=== PATIENT | male | born 1950 | race Caucasian/White ===

== ENCOUNTER 2016-09-15 01:05 | Emergency (ER) | payer MEDICARE ==
[~2016-09-15] VITALS: Ht 170.2 cm; Wt 65.9 kg
[~2016-09-15 01:05] MED LIST: ATEN50TA PO; DULO30CA50 PO; SILD100T PO
[2016-09-15 01:08] VITALS: BP 118/59; PULSE 136; RESP 16; O2SAT 96
[2016-09-15 01:20] VITALS: BP_SYST 106; BP_SYST 112; BP_DIAS 59; BP_DIAS 64; PULSE 108; PULSE 95; RESP 14; RESP 18; O2SAT 95; O2SAT 96
--- NOTE | 2016-09-15 01:50 | ED.REPORT ---
HPI-General Illness Date of Service Sep 15, 2016 ED Provider: Trevon Parikh MD A 66 year old male with a history of PSVT, diverticulosis, and hemorrhoids presents to the ED with palpitations onset 1.5 hours ago. The patient also reports chest tightness and dizziness. He denies shortness of breath. He was in the ED one year ago with similar symptoms and was placed on Metoprolol. Nursing Notes Stated Complaint: POSSIBLE IRREGULAR HEARTBEAT Chief Complaint: Dysrhythmia/Cardiac Nursing Notes Reviewed: Yes Allergies: Coded Allergies: No Known Allergies (Verified Allergy, Unknown, 11/01/15) Scheduled Apixaban (Eliquis) 5 Mg Tablet 5 MG PO DAILY Atenolol (Atenolol) 50 Mg Tablet 50 MG PO DAILY Duloxetine (Duloxetine) 30 Mg Capsule.dr 30 MG PO DAILY Scheduled PRN Sildenafil Citrate (Viagra) 100 Mg Tablet 100 MG PO UD PRN PRN . General Time Seen by MD: 01:30 Chief Complaint Other (Palpitations) Hx Obtained From: Patient Arrived By: Walk-in Onset Occurred: 1 - 4 hours ago Symptom Duration: Since onset Location: : Chest Quality: Painful ("Tightness") Severity: Current: Mild Severity: Maximum: Mild Associated with: Reports: Chest pain ("tightness"), Dizziness, Denies: Shortness of breath, Vomiting Pertinent Negative: Relieved by nothing Recent Healthcare: No recent doctor visit Similar Sx Previous: Yes Past Medical History Past Medical History PSVT Multiple colon polyps. Right-sided AVMs. Diverticulosis. Hemorrhoids. Past Surgical History Colonoscopy Lumbar fusion Bilateral rotator cuff surgery Smoking History Unknown if Ever Smoker Social History Other Social History: Ambulatory Status Independent Review of Systems Full Review of Systems Respiratory: Denies: Shortness of breath Cardiovascular: Reports: Chest pain ("tightness"), Palpitations GI: Denies: Vomiting Neurologic: Reports: Dizziness Complete sys rev & neg: except as marked. Physical Exam Vital Signs Vital Signs Date Time Temp Pulse Resp B/P Pulse Ox O2 Delivery O2 Flow Rate FiO2 09/15/16 03:30 82 19 108/64 94 Room Air 09/15/16 02:09 86 16 108/69 92 Room Air 09/15/16 01:20 95 14 112/64 96 Room Air 09/15/16 01:08 136 16 118/59 96 Room Air Initial VS: Reviewed, Vital signs abnormal Head / Eyes: Atraumatic, Normocephalic ENT: Conjunctiva normal, No scleral icterus Extremities: Vascular intact, Neuro intact, No swelling Skin: Warm, Dry, No cyanosis Neurologic: Alert, Oriented, Nonfocal Psychiatric: Mood/affect normal, Behavior normal, Normal thought content General/Constitutional: Awake, Alert Distress / Hydration: Positive: Distress mild Neck: Supple, Full range of motion, No JVD Respiratory / Chest: Breath sounds NL, Breath sounds = bilat, No respiratory distress Cardiovascular: Heart sounds NL Heart Rate / Rhythm: Positive: Irreg irregular rhythm, Tachycardia Interpretation & Diagnostics Lab Results Interpretation Result Diagram: 09/15/16 0135 09/15/16 0135 Test 09/15/16 01:35 09/15/16 04:00 White Blood Count 9.0th/mm3 (3.8-10.1) Red Blood Count 4.76mil/mm3 (4.40-5.80) Hemoglobin 14.2g/dL (13.8-17.2) Hematocrit 41.9% (41.0-50.0) Mean Corpuscular Volume 88.0fL (81-100) Mean Corpuscular Hemoglobin 29.8pg (27.0-35.0) Mean Corpuscular Hemoglobin Concent 33.9% (32.0-37.0) Red Cell Distribution Width 13.3% (12.3-15.4) Platelet Count 281bil/L (150-400) Neutrophils (%) (Auto) 54.7% (40-74) Lymphocytes (%) (Auto) 31.3% (14-46) Monocytes (%) (Auto) 9.5% (4-12) Eosinophils (%) (Auto) 3.4% (0-5) Basophils (%) (Auto) 1.0% (0-3) Sodium Level 141mEq/L (134-144) Potassium Level 3.7mEq/L (3.5-5.2) Chloride Level 100mEq/L (97-108) Carbon Dioxide Level 26mmol/L (18-29) Blood Urea Nitrogen 16mg/dL (8-27) Creatinine 0.84mg/dL (0.76-1.27) Estimat Glomerular Filtration Rate 97mL/min (>59) Glucose Level 128mg/dL (60-99) Calcium Level 9.9mg/dL (8.5-10.1) Magnesium Level 2.1mg/dL (1.6-2.6) Total Bilirubin 0.2mg/dL (0.0-1.2) Aspartate Amino Transf (AST/SGOT) 27U/L (0-50) Alanine Aminotransferase (ALT/SGPT) 17U/L (0-44) Alkaline Phosphatase 102U/L (25-160) Troponin T 0.010ug/L (0.0-0.011) Total Protein 6.9g/dL (6.4-8.4) Albumin 4.5g/dL (3.4-5.0) Hold Hicks Top Tube Received (Received) Hold Urine Received (Received) Lab values outside NL range: no clinical significance. ECG Interpretation ECG Interpretation: Atrial fibrillation rate 132 Low voltage, precordial leads Time: 01:26 Interpreted by: ED physician ECG Interpretation: Atrial fibrillation rate 69 Time: 02:26 Interpreted by: ED physician X-Ray Chest Interpretation Chest Xray Interpretation: Normal exam View: Portable, 1 view Interpretation / Wet Read by: Wet read ED physician Re-Eval/Medical Decision Med Decision/Clinical Course 66-year-old male with rapid irregular heartbeat, quite variable. He has a history of intermittent atrial fibrillation and is on a beta sugar. EKG initially showed a flutter with a 2-1 or 3-1 block. He was given Cardizem which brought his rate down into the 70-90 range. Emergency room cardiac evaluation is otherwise negative. He has never had sustained fibrillation in the past,, has not required cardioversion and is not on blood thinners. It is felt likely that he will convert on his own. He was placed on Eliquis and will follow-up with cardiology. He will return to the emergency room if he has sustained rapid rate. Source of Hx: Old records Time of Eval: 05:30 Patient Status: Condition improved Re-Evaluation/Progress Note: Discussed with patient x-ray and lab results, diagnosis, and plan for discharge. Follow-up and return to the ER instructions given. Patient agrees with plan for care and all questions were addressed. Counseled Regarding: Diagnosis, Lab results, Need for follow-up, When/why to return to ED Discharge & Departure Primary Impression: Atrial fibrillation and flutter Disposition: Home Discharge Condition All VS Reviewed: Yes Condition: Stable Patient Instructions: Atrial Fibrillation (ED) Additional Instructions: Eliquis 5 mg daily to thin your blood and prevent blood clot and stroke. See the Photo Retoucher SUKH about the next step. Return if you get rapid rate again. Referrals: Talon Marie MD (PCP) Keila Armendariz MD Attestation Portions of this note were transcribed by Renetta Sandoval. I, Dr. Parikh, personally performed the history, physical exam, and medical decision-making; I reviewed and confirmed the accuracy of the information in the transcribed note. Signed by: Pratibha Vaughan, 09/15/2016, 05:43 copies to: Keila Armendariz MD; Talon Marie MD, Howard L MD Sep 15, 2016 01:50 RENETTA SANDOVAL Sep 15, 2016 01:57
[2016-09-15] MEDS ORDERED: Diltiazem 5 mg/mL 5 mL Inj IVPUSH ONE (01:55)
[2016-09-15 02:01] LABS: EOSINOPHILS % (AUTO) 3.4 % (0-5); MONOCYTES % (AUTO) 9.5 % (4-12); Mean Corpuscular Hemoglobin 29.8 pg (27.0-35.0); NEUTROPHILS % (AUTO) 54.7 % (40-74); Platelet Count 281 bil/L (150-400)
[2016-09-15 02:09] VITALS: BP 108/69; PULSE 86; RESP 16; O2SAT 92
[2016-09-15 02:34] LABS: Magnesium 2.1 mg/dL (1.6-2.6); TROPONIN T 0.01 ug/L (0.0-0.011)
[2016-09-15 03:30] VITALS: BP 108/64; PULSE 82; RESP 19; O2SAT 94
[2016-09-15] MEDS ORDERED: APIX5TAB PO (05:38)
--- NOTE | 2016-09-15 08:05 | DRSVH ---
PROCEDURE: X-RAY CHEST ONE VIEW, PORTABLE ([id number]) INDICATIONS: palpitations TECHNIQUE: One view of the chest was acquired. COMPARISON: None. FINDINGS: Surgical changes and devices: None. Lungs and pleura: No pleural effusions or pneumothorax. Lungs are clear. Mediastinum: Mediastinal contours appear normal. Heart size is normal. Bones and chest wall: No suspicious bony lesions. Overlying soft tissues appear unremarkable. IMPRESSION: Normal chest Dictated by: Mikal Valenzuela M.D. on 09/15/2016 at 8:03 Approved by: Mikal Valenzuela M.D. on 09/15/2016 at 8:03
== END 2016-09-15 06:16 | disposition home or self-care (01) ==
LOC: SED 01:05
DX: I48.91 Unspecified atrial fibrillation (principal); I48.92 Unspecified atrial flutter; R07.89 Other chest pain